=== PATIENT | female | born 1955 | race Caucasian/White ===

== ENCOUNTER 2021-07-10 13:17 | Emergency (ER) | payer MEDICARE, SELFPAY ==
[2021-07-10 13:23] VITALS: BP 139/88; PULSE 72; RESP 16; TEMP 37; O2SAT 98
--- NOTE | 2021-07-10 13:31 | ED.URI ---
HPI - URI/Sore Throat General Chief Complaint: Upper Respiratory Infection Stated Complaint: SINUS CONGESTION Time Seen by Provider: 07/10/21 13:32 Source: patient, RN notes reviewed and old records reviewed Mode of arrival: ambulatory Limitations: no limitations History of Present Illness HPI Narrative: 65 year old female who presents to [facility] care with complaints of sinus congestion with sinus pressure with history of chronic sinus problems. Patient states that she has been having yellowish brown nasal drainage, facial pressure on the left side of her face and forehead pain and states that her teeth even hurt. Patient reports that she takes daily Singulair related to her sinus problems. Patient reports that she knows of no recent fever, reports that her throat is dry and sore, her ear feel full also with some cough noted which is nonproductive. Patient states that she has been taking Mucinex for her symptoms, has had COVID vaccinations and also flu shot this year. Related Data Home Medications Medication Instructions Recorded Confirmed hydrochlorothiazide 12.5 mg PO DAILY 07/10/21 07/10/21 metoprolol tartrate 50 mg PO DAILY 07/10/21 07/10/21 montelukast 10 mg PO DAILY 07/10/21 07/10/21 Allergies Allergy/AdvReac Type Severity Reaction Status Date / Time cortisone Allergy Redness of Verified 07/10/21 13:24 Skin Sulfa (Sulfonamide Allergy Other Verified 07/10/21 13:24 Antibiotics) Review of Systems Review of Systems: CONSTITUTIONAL: Denies fever, chills, or sweats. EYES: Denies visual changes, redness, or discharge. ENT: Positive for rhinorrhea, congestion, sore throat,and pressure to ears, facial sinus pressure on left side CARDIOVASCULAR: Denies chest pain, palpitations, or edema. RESPIRATORY: Occasional cough denies dyspnea. GASTROINTESTINAL: Denies abdominal pain, nausea, vomiting, or diarrhea. GENITOURINARY: Denies dysuria or hematuria. SKIN: Denies rash or itching. MUSCULOSKELETAL: Denies back pain, joint pain, or myalgia. NEUROLOGIC: Positive for frontal headache,no numbness, or weakness. PSYCHIATRIC: Denies anxiety or depression. All systems reviewed & are unremarkable except as noted in HPI and below PMFSH Past Medical History Medical History (Updated 07/10/21 @ 14:07 by Yvette Pierre NP) Foot fracture Hypertension Sinusitis Surgical History Surgical History (Updated 07/10/21 @ 14:07 by Yvette Pierre NP) H/O: hysterectomy History of bladder repair surgery Family History Family History (Updated 07/10/21 @ 13:47 by Yvette Pierre NP) Father Acute myocardial infarction Social History Social History (Updated 07/10/21 @ 14:03 by Yvette Pierre NP) Smoking status: Never smoker Alcohol intake: current Alcohol use details: rare social Substance use: never Living arrangements: with family Gender identity (if verbalized by the patient): Female Comments At time of signature, agree with nursing past medical, surgical, social and family history. There is no relevant family history pertinent to the presenting complaint Exam Narrative: GENERAL: Well-appearing, well-nourished, and in no acute distress. HEAD: Normocephalic, atraumatic. EYES: PERRLA and EOMI. ENT: Nares red with swollen turbinates, yellowish brown rhinorrhea no epistaxis. Mucous membranes moist.TM's normal with dull light reflex, throat red with no exudates or lesions. no tonsil swelling, post nasal drainage present/ sinus pain and pressure and frontal headache. NECK: Supple. no lymphadenopathy CHEST: Clear to auscultation. No respiratory distress. no acute cough or any shortness of breath with SAO2 98% on room air. HEART: Regular rate and rhythm. No murmur heard. Normal peripheral pulses. ABDOMEN: Soft, nontender, nondistended, normal active bowel sounds. EXTREMITIES: Normal range of motion. No edema. SKIN: Warm, dry, no rash. NEURO: No focal deficits. Alert and oriented x3. Course Course
== END 2021-07-10 14:00 | disposition home or self-care (01) ==
PROVIDERS: Emergency Provider Registered Nurse; PCP Internal Medicine
DX: J32.9 Chronic sinusitis, unspecified (principal); I10 Essential (primary) hypertension
CPT/HCPCS: 99203; G0463

== ENCOUNTER 2022-03-17 14:43 | Emergency (ER) | payer MEDICARE, SELFPAY ==
[2022-03-17 14:46] VITALS: BP 134/79; PULSE 72; RESP 16; TEMP 36.5; O2SAT 99
--- NOTE | 2022-03-17 14:57 | ED.URI ---
HPI - URI/Sore Throat General Chief Complaint: Upper Respiratory Infection Stated Complaint: Sinus Time Seen by Provider: 03/17/22 14:57 Source: patient Mode of arrival: ambulatory Limitations: no limitations History of Present Illness HPI Narrative: 66 yo F presents with c/o sinus and nasal congestion, sinus headaches, PND for 10+ days. Takes singulair daily and has been using mucinex with little relief. Afebrile. all systems reviewed and negative except as noted above. Related Data Home Medications Medication Instructions Recorded Confirmed hydrochlorothiazide 12.5 mg capsule 12.5 mg PO DAILY 07/10/21 03/17/22 metoprolol tartrate 50 mg tablet 50 mg PO DAILY 07/10/21 03/17/22 montelukast 10 mg tablet 10 mg PO DAILY 07/10/21 03/17/22 Allergies Allergy/AdvReac Type Severity Reaction Status Date / Time cortisone Allergy Redness of Verified 03/17/22 14:46 Skin Sulfa (Sulfonamide Allergy Other Verified 03/17/22 14:46 Antibiotics) Review of Systems Review of Systems: CONSTITUTIONAL: Denies fever, chills, or sweats. EYES: Denies visual changes, redness, or discharge. ENT: Reports rhinorrhea, congestion, sinus pressure, sore throat, or otalgia. CARDIOVASCULAR: Denies chest pain, palpitations, or edema. RESPIRATORY: Denies cough or dyspnea. GASTROINTESTINAL: Denies abdominal pain, nausea, vomiting, or diarrhea. GENITOURINARY: Denies dysuria or hematuria. SKIN: Denies rash or itching. MUSCULOSKELETAL: Denies back pain, joint pain, or myalgia. NEUROLOGIC: Denies headache, numbness, or weakness. PSYCHIATRIC: Denies anxiety or depression. All other systems reviewed are negative, except as documented in HPI. [facility] Past Medical History Medical History (Updated 03/17/22 @ 15:05 by hKushbu Harrison NP) Foot fracture Hypertension Sinusitis Surgical History Surgical History (Updated 07/10/21 @ 14:07 by Yvette Pierre NP) H/O: hysterectomy History of bladder repair surgery Family History Family History (Updated 07/10/21 @ 13:47 by Yvette Pierre NP) Father Acute myocardial infarction Social History Social History (Updated 07/10/21 @ 14:03 by Yvette Pierre NP) Smoking status: Never smoker Alcohol intake: current Alcohol use details: rare social Substance use: never Gender identity (if verbalized by the patient): Female Comments At time of signature, agree with nursing past medical, surgical, social and family history. There is no relevant family history pertinent to the presenting complaint. Exam Narrative: GENERAL: This is a well-nourished, well-developed patient, in no apparent distress. HEAD: normocephalic, atraumatic. EYES: PERRL. Sclera clear/white. Vision is grossly intact. EARS: External ears normal, auditory canals clear and without drainage, TMs normal without perforation. Hearing grossly intact. NOSE: External nose normal with clear nasal drainage, erythema and swelling to both nares, bilateral maxillary sinus tenderness. THROAT: Mucous membranes moist, Erythema posterior pharynx with clear postnasal drainage. NECK: Neck supple, non-tender without lymphadenopathy, masses or thyromegaly. CARDIOVASCULAR: Regular rate and rhythm without murmurs, gallops, or rubs. RESPIRATORY: Clear to auscultation. Breath sounds equal bilaterally. No wheezes, rales, or rhonchi. SKIN: warm, Dry, intact with no suspicious lesions or rash, good texture and turgor. NEURO: awake, alert, and oriented to person, place and time. There were no obvious focal neurologic abnormalities. EXTREMITIES: No joint tenderness, effusion, or edema noted. Course Course Level of Care: Express Care Visit Vital Signs Vital signs: Vital Signs Temperature 36.5 C 03/17/22 14:46 Pulse Rate 72 03/17/22 14:46 Respiratory Rate 16 03/17/22 14:46 Blood Pressure 134/79 03/17/22 14:46 Pulse Oximetry 99 03/17/22 14:46 Oxygen Delivery Room Air 03/17/22 14:46 Temperature
== END 2022-03-17 15:07 | disposition home or self-care (01) ==
PROVIDERS: Emergency Provider Nurse Practitioner Family; PCP Internal Medicine
DX: J01.90 Acute sinusitis, unspecified (principal); B96.89 Other specified bacterial agents as the cause of diseases classified elsewhere; I10 Essential (primary) hypertension
CPT/HCPCS: 99213; G0463

== ENCOUNTER 2022-12-18 08:24 | Emergency (ER) | payer MEDICARE, SELFPAY ==
[2022-12-18 08:42] VITALS: BP 141/85; PULSE 117; RESP 14; TEMP 37.3; O2SAT 98
--- NOTE | 2022-12-18 08:50 | ED.URI ---
HPI - URI/Sore Throat General Chief Complaint: Upper Respiratory Infection Stated Complaint: headache,cough Source: patient and RN notes reviewed Mode of arrival: ambulatory Limitations: no limitations History of Present Illness HPI Narrative: 67-year-old female history of hypertension presented for complaint of headache, nausea, sinus pressure/congestion, fever/chills. Taking Tylenol for symptoms. Reports with similar symptoms. Denies sob, wheezing, lethargy, vomiting or diarrhea. MD elicited complaint: cough Related Data Home Medications Medication Instructions Recorded Confirmed hydrochlorothiazide 12.5 mg capsule 12.5 mg PO DAILY 07/10/21 03/17/22 metoprolol tartrate 50 mg tablet 50 mg PO DAILY 07/10/21 03/17/22 montelukast 10 mg tablet 10 mg PO DAILY 07/10/21 03/17/22 celecoxib 200 mg capsule mg 12/18/22 ropinirole 0.5 mg tablet mg 12/18/22 12/18/22 Allergies Allergy/AdvReac Type Severity Reaction Status Date / Time cortisone Allergy Redness of Verified 12/18/22 08:42 Skin Sulfa (Sulfonamide Allergy Other Verified 12/18/22 08:42 Antibiotics) Review of Systems Review of Systems: CONSTITUTIONAL: Endorses malaise, chills, sweats, fever EYES: Denies visual changes, redness, or discharge ENT: Reports rhinorrhea, congestion, sinus pain, denies otalgia, sore throat CARDIOVASCULAR: Denies chest pain, palpitations, edema RESPIRATORY: Reports cough, post nasal drainage. Denies dyspnea GASTROINTESTINAL: Denies abdominal pain, nausea, vomiting, diarrhea SKIN: Denies rash or itching MUSCULOSKELETAL: Endorses myalgia NEUROLOGIC: endorses headache PMFSH Past Medical History Medical History Foot fracture Hypertension Sinusitis Surgical History Surgical History H/O: hysterectomy History of bladder repair surgery Family History Family History Father Acute myocardial infarction Social History Social History Smoking status: Never smoker Alcohol intake: current Alcohol use details: rare social Substance use: never Living arrangements: with family Gender identity (if verbalized by the patient): Female Exam Narrative: GENERAL: mildly Ill-appearing, nontoxic no acute distress. HEAD: Normocephalic EYES: PERRLA, conjunctivae clear ENT: Mucous membranes moist. TMs pearly galaviz with dull light reflex bilaterally; no tragal tenderness. Oropharynx erythematous without lesions or exudate NECK: Supple. No lymphadenopathy CHEST: Clear to auscultation, breath sounds equal. No wheezing, rhonchi, rales, or stridor. No respiratory distress, speaks in full sentences. HEART: Regular rate and rhythm. No murmur heard. SKIN: Warm, dry, no rash. NEURO: Alert and oriented x3. PSYCH: Normal mood and affect Course Course Emergency Course: Patient is aware of diagnosis, understands and agrees to treatment plan. Anticipatory guidance given. Patient agrees to follow-up as directed and is aware of reasons to seek care at the emergency department. Portions of this record may have been created with voice recognition software Level of Care: Express Care Visit Vital Signs Vital signs: Vital Signs Temperature 99.1 F 12/18/22 08:42 Pulse Rate 117 H 12/18/22 08:42 Respiratory Rate 14 12/18/22 08:42 Blood Pressure 141/85 H 12/18/22 08:42 Pulse Oximetry 98 12/18/22 08:42 Oxygen Delivery Room Air 12/18/22 08:42 Temperature 99.1 F 12/18/22 08:42 Pulse Rate 117 H 12/18/22 08:42 Respiratory Rate 14 12/18/22 08:42 Blood Pressure 141/85 H 12/18/22 08:42 Pulse Oximetry 98 12/18/22 08:42 Oxygen Delivery Room Air 12/18/22 08:42 reviewed MDM - URI/Sore Throat MDM Narrative Medical decision making narrative: positive COVID results rev
== END 2022-12-18 09:00 | disposition home or self-care (01) ==
PROVIDERS: Emergency Provider Nurse Practitioner Family; PCP Internal Medicine
DX: U07.1 COVID-19 (principal); I10 Essential (primary) hypertension
CPT/HCPCS: 87426; 87804; 99213; C9803; G0463

== ENCOUNTER 2025-03-27 09:44 | Emergency (ER) | payer MEDICARE, SELFPAY ==
--- NOTE | 2025-03-27 09:47 | ED.FEMALEGU ---
HPI - Female Genitourinary General Chief complaint: Urogenital-Female Stated complaint: UTI Time Seen by Provider: 03/27/25 09:47 Source: patient Mode of arrival: ambulatory Limitations: no limitations History of Present Illness HPI Narrative: Alma is a 69-year-old female patient presenting to the clinic today with complaints of a possible UTI. She reports burning, frequency, and urgency x 4 days. She denies any fevers, chills, body aches. States he is having pain over the bladder and some low back pain. No fevers, chills, body aches. Denies any nausea or vomiting. Related Data Home Medications ?Medication ?Instructions ?Recorded ?Confirmed ?Last Taken ?Type hydrochlorothiazide 12.5 mg capsule 12.5 mg PO DAILY 07/10/21 03/17/22 Unknown History metoprolol tartrate 50 mg tablet 50 mg PO DAILY 07/10/21 03/17/22 Unknown History montelukast 10 mg tablet 10 mg PO DAILY 07/10/21 03/17/22 Unknown History celecoxib 200 mg capsule mg 12/18/22 Unknown History ropinirole 0.5 mg tablet mg 12/18/22 12/18/22 Unknown History Allergies Allergy/AdvReac Type Severity Reaction Status Date / Time cortisone Allergy Redness of Verified 12/18/22 08:42 Skin Sulfa (Sulfonamide Allergy Other Verified 12/18/22 08:42 Antibiotics) Review of Systems Review of Systems: Pertinent positives per HPI. Patient denies any fever, chills, rash, headache, visual changes, dizziness, cough, runny nose, sore throat, shortness of breath, chest pain, palpitations, nausea, vomiting, diarrhea, constipation, abdominal pain. [facility] Past Medical History Medical History Foot fracture Hypertension Sinusitis Surgical History Surgical History History of bladder repair surgery H/O: hysterectomy Family History Family History Father Acute myocardial infarction Social History Social History Smoking status: Never smoker Alcohol intake: current Alcohol use details: rare social Substance use: never Living arrangements: with family Gender identity (if verbalized by the patient): Female Comments At the time of my signature, I reviewed and agree with the nursing past medical, surgical, social, and family history. There is no relevant family history pertinent to the patient complaint. Exam Narrative: General: Well-developed, well nourished, in no apparent distress. Head: Normocephalic, atraumatic. Cardio: Regular rate and rhythm, s1 and s2 normal, no murmur appreciated. Resp: Clear to auscultation bilaterally, no rhonchi, rales, wheezing or rubs. Abdomen: Soft, pliable, bowel sounds present in all quadrants, suprapubic tender to palpation, no organomegly, no CVAT tenderness. Course Course Level of Care: Express Care Visit Vital Signs Vital signs: Vital Signs Temperature 35.8 C L 03/27/25 10:00 Pulse Rate 60 03/27/25 10:00 Respiratory Rate 16 03/27/25 10:00 Blood Pressure 139/91 H 03/27/25 10:00 Pulse Oximetry 99 03/27/25 10:00 Oxygen Delivery Room Air 03/27/25 10:00 Temperature 35.8 C L 03/27/25 10:00 Pulse Rate 60 03/27/25 10:00 Respiratory Rate 16 03/27/25 10:00 Blood Pressure 139/91 H 03/27/25 10:00 Pulse Oximetry 99 03/27/25 10:00 Oxygen Delivery Room Air 03/27/25 10:00 [facility] MDM Narrative Medical decision making narrative: At the time of visit patient is resting comfortably on the exam table. Patient appears to be nontoxic. Urine dip was ordered. Complaints of a possible UTI. She reports burning, frequency, and urgency x 4 days. She denies any fevers, chills, body aches. States he is having pain over the bladder and some low back pain. No fevers, chills, body aches. Denies any nausea or vomiting. On exam patient has soft, pliable, nondistended, suprapubic tenderness, no organomegaly, no CVAT tenderness Labs: Urinalysis dip was negative. We will send urine for culture. Plan: Patient is having UTI symptoms. Recommend taking [id number] azo for her symptoms and we will send urine for culture. If urine culture comes back positive for bacteria we will treat at that time. Recommend follow-up with PCP as soon as she is able to. Supportive measures were discussed with the patient and they voiced understanding discharge instructions and agrees to treatment plan. Return precautions reviewed Differential Diagnosis Differential Diagnosis: Differential diagnostic considerations for female urogenital issues include urinary tract infection, bacterial vaginosis, cervicitis, ovarian cyst, vaginitis, STI exposure, ovarian torsion, ectopic , cyst of Bartholin?s gland, cystitis, dysmenorrhea. Lab Data Labs: Lab Results 03/27/25 Range/Units 10:16 POC Urine Color Yellow POC Urine Clarity Clear POC Urine pH 7.0 POC Ur Specif [place] 1.020 POC Urine Protein Negative (Negative) POC Ur Glucose (UA) Negative (Negative) POC Urine Ketones Negative (Negative) POC Urine Blood Negative (Negative) POC Urine Nitrite Negative (Negative) POC Urine Bilirubin Negative (Negative) POC Urine Urobilinogen 0.2 POC U Leukocyte Esteras Negative (Negative) Discharge Plan Discharge Clinical Impression: Dysuria, Urinary frequency with urgency Patient Disposition: Home Condition: Stable Instructions: Antibiotic Form, Dysuria (ED), Urinary Urgency and Frequency (DC) Additional Instructions: No sign of bacteria or blood in the urine dip. We will send urine for culture. If culture comes back positive we will call you in prescription for antibiotic. May take [id number] azo as needed for UTI symptoms Increase fluids and stay well hydrated Wipe front to back. May use wet wipes. Avoid tub baths If sexually active- pee before and after intercourse. Wear cotton panties Avoid tight clothing up against the genitals Follow up with your PCP in 1 week if symptoms persist. Patient Language: Citizen [place] Prescriptions: No Action metoprolol tartrate 50 mg tablet 50 mg PO DAILY hydrochlorothiazide 12.5 mg capsule 12.5 mg PO DAILY montelukast 10 mg tablet 10 mg PO DAILY celecoxib 200 mg capsule ropinirole 0.5 mg tablet Follow-up/Referrals: Ac,Pradeep Reece MD [Primary Care Provider, Unknown] Time of Disposition: 10:16 Quality NIHSS Nursing Documentation ED NIHSS nursing documentation: reviewed/agree
[2025-03-27 10:00] VITALS: BP 139/91; PULSE 60; RESP 16; TEMP 35.8; O2SAT 99
[2025-03-27 10:18] LABS: EDUAAPPEAR Clear; EDUABILI Negative (Negative); EDUABLOOD Negative (Negative); EDUACOLOR1 Yellow; EDUAGLUCOSE Negative (Negative); EDUAKETONE Negative (Negative); EDUALEUKO Negative (Negative); EDUANITRATE Negative (Negative); EDUAPH 7.0; EDUAPROTEIN Negative (Negative); EDUASPGRAVITY 1.020; EDUAUROBILI 0.2
== END 2025-03-27 10:23 | disposition home or self-care (01) ==
PROVIDERS: Emergency Provider Nurse Practitioner Family; PCP Internal Medicine
DX: R30.0 Dysuria (principal); R35.0 Frequency of micturition; R39.15 Urgency of urination; I10 Essential (primary) hypertension
CPT/HCPCS: 81003; 87086; 99212; 99213; G0463